=== PATIENT | male | born 1975 | race African-American/Black ===

== ENCOUNTER 2016-07-14 11:12 | Emergency (ER) | payer OTHER ==
[2016-07-14 11:18] VITALS: RESP 18
[2016-07-14] MEDS ORDERED: SODIUM CHLORIDE 0.9% 500 ML IV STA (11:29)
[2016-07-14] MEDS ORDERED: SODIUM CHLORIDE 0.9% 1,000 ML IV STA (11:29)
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
[2016-07-14 12:22] LABS: ALT 22 U/L (21-72); AST 26 U/L (17-59); Alkaline Phosphatase 55 U/L (38-126); Amylase 94 U/L (30-110); Anion Gap 6 mmol/L; Blood Urea Nitrogen 9 mg/dL (9-20); Calcium 9.4 mg/dL (8.4-10.2); Carbon Dioxide 27 mmol/L (22-30); Chloride 105 mmol/L (98-107); Glucose 90 mg/dL (74-99); Non-African American GFR(MDRD) >60 (>60 ml/min/1.73 sqM); Potassium 4.6 mmol/L (3.5-5.1); Sodium 138 mmol/L (137-145); Total Bilirubin 0.8 mg/dL (0.2-1.3); Total Protein 7.2 g/dL (6.3-8.2)
[2016-07-14 12:24] LABS: Basophils # (A) 0.1 k/uL (0-0.2); Basophils % (A) 1 %; CH 30.8; CHCM 32.5; Eosinophils # (A) 0.2 k/uL (0-0.7); Eosinophils % (A) 3 %; HCT 44.7 % (39.0-53.0); HDW 2.15; HGB 14.5 gm/dL (13.0-17.5); Luc # (Auto) 0.14; Luc % (Auto) 3; Lymphocytes # (A) 2.1 k/uL (1.0-4.8); Lymphocytes % (A) 38 %; MCHC 32.5 g/dL (31.0-37.0); MCV 95.4 fL (80.0-100.0); Mean Platelet Volume 7.4; Monocytes # (A) 0.4 k/uL (0-1.0); Monocytes % (A) 7 %; Neutrophils # (A) 2.6 k/uL (1.3-7.7); Neutrophils % (A) 48 %; RBC 4.68 m/uL (4.30-5.90); RDW 13.7 % (11.5-15.5); WBC 5.5 k/uL (3.8-10.6); WBC (Perox) 5.33
--- NOTE | 2016-07-14 12:24 | XR ---
EXAMINATION TYPE: XR abdomen 2V DATE OF EXAM: 07/14/2016 12:20 PM CLINICAL HISTORY: Umbilical pain for one day. TECHNIQUE: Supine and upright views of the abdomen are obtained. COMPARISON: Abdominal x-ray September 14, 2015 FINDINGS: Scattered gas is seen in non-distended small bowel loops. Gas and fecal material is seen in non-distended colon and rectum. There is no visceromegaly, pneumoperitoneum, or abnormal calcifi cation appreciated. The lung bases are clear. Sclerotic focus left proximal femur likely reflects be nign bone island. IMPRESSION: Overall nonobstructive bowel gas pattern. No significant change from prior.
[2016-07-14 12:51] LABS: Appearance,Urine Clear (Clear); Bilirubin,Urine Negative (Negative); Glucose,Urine (UA) Negative (Negative); Ketones,Urine Negative (Negative); Leukocyte Esterase,Urine Negative (Negative); Nitrite,Urine Negative (Negative); Protein,Urine Trace (Negative); Specific Gravity,Urine 1.021 (1.001-1.035); UA Billing (MACRO vs. MICRO) CHEM
[2016-07-14] MEDS ORDERED: IOHEXOL 350 MG/ML 25 ML BOTTLE (ORAL USE) PO PRN (13:07)
[2016-07-14] MEDS ORDERED: RX INFO: IV CONTRAST WAS GIVEN 1 EACH MISC MISCELLANE PRN (13:07)
[2016-07-14 13:35] VITALS: BP 161/106; PULSE 69; TEMP 97.3
== END 2016-07-14 13:35 | disposition home or self-care (01) ==
LOC: EC 11:12
DX: R10.9 Unspecified abdominal pain (principal); J45.909 Unspecified asthma, uncomplicated; F17.200 Nicotine dependence, unspecified, uncomplicated; Z79.899 Other long term (current) drug therapy
CPT/HCPCS: 36415; 74020; 80053; 81003; 82150; 83605; 83690; 85025; 87086; 96360; 99284

== ENCOUNTER 2016-11-14 08:36 | Emergency (ER) | payer OTHER ==
[2016-11-14 08:49] VITALS: BP 123/79; PULSE 60; RESP 18; TEMP 98.4
[2016-11-14] MEDS ORDERED: KETOROLAC 60 MG/2 ML VIAL IM STA (08:53)
[2016-11-14] MEDS ORDERED: ORPHENADRINE 30 MG/ML 2 ML VIAL IM STA (08:53)
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
--- NOTE | 2016-11-14 09:25 | XR ---
EXAMINATION TYPE: XR lumbar spine 2 or 3V , 3 VIEWS DATE OF EXAM ORDERED: 11/14/2016 HISTORY: Pain. COMPARISON: None. FINDINGS: There is a gentle dextroscoliosis present. Vertebral body height and alignment are maintained. There is no spondylolysis or spondylolisthesis. D isc spaces are maintained. There is mild hypertrophic spondylosis at T11-12 and T12-L1. The pedicles are intact. IMPRESSION: 1. NO ACUTE OSSEOUS LESION. 2. MILD DEGENERATIVE CHANGE.
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
== END 2016-11-14 09:35 | disposition home or self-care (01) ==
LOC: EC 08:36
DX: S16.1XXA Strain of muscle, fascia and tendon at neck level, initial encounter (principal); S39.012A Strain of muscle, fascia and tendon of lower back, initial encounter; F17.200 Nicotine dependence, unspecified, uncomplicated; Z18.11 Retained magnetic metal fragments; Z98.890 Other specified postprocedural states; Z79.899 Other long term (current) drug therapy
CPT/HCPCS: 99283; 96372 ×2; 72050; 72100; J2360; J1885

== ENCOUNTER 2017-02-14 17:29 | Emergency (ER) | payer OTHER ==
[2017-02-14 17:44] VITALS: RESP 18; TEMP 98.3
[2017-02-14] MEDS ORDERED: ONDANSETRON 4 MG/2 ML VIAL IVP STA (17:51)
[2017-02-14] MEDS ORDERED: SODIUM CHLORIDE 0.9% 500 ML IV STA (17:51)
[2017-02-14] MEDS ORDERED: FAMOTIDINE 20 MG/2 ML VIAL IV STA (17:52)
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
[2017-02-14 18:39] LABS: Basophils % (A) 1 %; CH 30.6; CHCM 33.2; Eosinophils # (A) 0.3 k/uL (0-0.7); Eosinophils % (A) 5 %; HCT 44.5 % (39.0-53.0); HDW 2.18; HGB 14.6 gm/dL (13.0-17.5); Luc # (Auto) 0.17; Luc % (Auto) 3; Lymphocytes # (A) 2.7 k/uL (1.0-4.8); Lymphocytes % (A) 47 %; MCH 30.3 pg (25.0-35.0); MCHC 32.8 g/dL (31.0-37.0); MCV 92.6 fL (80.0-100.0); Mean Platelet Volume 7.1; Monocytes # (A) 0.3 k/uL (0-1.0); Monocytes % (A) 5 %; Neutrophils # (A) 2.2 k/uL (1.3-7.7); Neutrophils % (A) 39 %; RBC 4.81 m/uL (4.30-5.90); RDW 13.6 % (11.5-15.5); WBC 5.7 k/uL (3.8-10.6); WBC (Perox) 5.25
[2017-02-14 18:54] LABS: ALT 25 U/L (21-72); AST 28 U/L (17-59); Alkaline Phosphatase 48 U/L (38-126); Amylase 106 U/L (30-110); Anion Gap 4 mmol/L; Blood Urea Nitrogen 15 mg/dL (9-20); Calcium 9.2 mg/dL (8.4-10.2); Carbon Dioxide 24 mmol/L (22-30); Chloride 107 mmol/L (98-107); Glucose 84 mg/dL (74-99); Non-African American GFR(MDRD) >60 (>60 ml/min/1.73 sqM); Potassium 4.1 mmol/L (3.5-5.1); Sodium 135 mmol/L (137-145); Total Bilirubin 0.5 mg/dL (0.2-1.3); Total Protein 5.9 g/dL (6.3-8.2)
[2017-02-14 18:59] VITALS: BP 135/79
[2017-02-14 19:02] LABS: Appearance,Urine Clear (Clear); Bacteria,Urine Rare /hpf; Bilirubin,Urine Negative (Negative); Glucose,Urine (UA) Negative (Negative); Ketones,Urine Negative (Negative); Leukocyte Esterase,Urine Moderate (Negative); Mucus,Urine Rare /hpf; Nitrite,Urine Negative (Negative); Particle Count 1854; Protein,Urine Trace (Negative); RBC,Urine 1 /hpf (0-5); Specific Gravity,Urine 1.024 (1.001-1.035); Sperm,Urine Rare /hpf; UA Billing (MACRO vs. MICRO) MICRO; WBC,Urine 29 /hpf (0-5)
--- NOTE | 2017-02-14 19:18 | XR ---
EXAMINATION TYPE: XR KUB DATE OF EXAM: 02/14/2017 COMPARISON: 07/14/2016 HISTORY: Abdominal pain TECHNIQUE: 2 views FINDINGS: There is no sign of intestinal obstruction or pneumoperitoneum. Fecal pattern is normal. Pam ng bases are clear. There are no pathologic calcifications over the kidneys. IMPRESSION: Nonacute abdomen. No change.
[2017-02-14 19:26] VITALS: PULSE 72
== END 2017-02-14 19:45 | disposition home or self-care (01) ==
LOC: MERGE 17:29 → EC 17:29
DX: N39.0 Urinary tract infection, site not specified (principal); R11.2 Nausea with vomiting, unspecified; R19.7 Diarrhea, unspecified; F17.200 Nicotine dependence, unspecified, uncomplicated; Z79.1 Long term (current) use of non-steroidal anti-inflammatories (NSAID); Z79.899 Other long term (current) drug therapy
CPT/HCPCS: 36415; 74000; 80053; 81001; 82150; 83690; 85025; 96361; 96374; 96375; 99284

== ENCOUNTER 2017-09-07 04:30 | Observation (INO) | payer OTHER ==
[2017-09-07 05:04] LABS: Basophils % (A) 0 %; Eosinophils # (A) 0.2 k/uL (0-0.7); Eosinophils % (A) 3 %; HCT 46.9 % (39.0-53.0); HGB 15.3 gm/dL (13.0-17.5); Lymphocytes # (A) 1.9 k/uL (1.0-4.8); Lymphocytes % (A) 31 %; MCH 29.8 pg (25.0-35.0); MCHC 32.7 g/dL (31.0-37.0); MCV 91.2 fL (80.0-100.0); Monocytes # (A) 0.4 k/uL (0-1.0); Monocytes % (A) 7 %; Neutrophils # (A) 3.4 k/uL (1.3-7.7); Neutrophils % (A) 56 %; Platelet Count 278 k/uL (150-450); RBC 5.14 m/uL (4.30-5.90); RDW 13.7 % (11.5-15.5); WBC 6.2 k/uL (3.8-10.6)
[2017-09-07 05:12] LABS: Albumin 4.3 g/dL (3.5-5.0); Anion Gap 11 mmol/L; Calcium 9.5 mg/dL (8.4-10.2); Carbon Dioxide 24 mmol/L (22-30); Chloride 105 mmol/L (98-107); Glucose 109 mg/dL (74-99); Lipase 59 U/L (23-300); Sodium 140 mmol/L (137-145); Total Bilirubin 0.5 mg/dL (0.2-1.3); Total Protein 6.9 g/dL (6.3-8.2)
[2017-09-07 05:13] LABS: ALT 26 U/L (21-72); AST 25 U/L (17-59); Alkaline Phosphatase 50 U/L (38-126); Blood Urea Nitrogen 15 mg/dL (9-20); Magnesium 2.1 mg/dL (1.6-2.3); Potassium 4.3 mmol/L (3.5-5.1)
[2017-09-07 05:18] LABS: D-Dimer 0.31 mg/L FEU (<0.60); INR 0.9 (<1.2); Partial Thromboplastin Time 28.7 sec (22.0-30.0); Prothrombin Time 9.4 sec (9.0-12.0)
[2017-09-07 05:24] LABS: Creatine Kinase 200 U/L (55-170)
--- NOTE | 2017-09-07 05:25 | XR ---
EXAMINATION TYPE: XR chest 2V DATE OF EXAM: 09/07/2017 COMPARISON: 09/29/2015 HISTORY: Chest tightness TECHNIQUE: Frontal and lateral views of the chest are obtained. FINDINGS: Heart and mediastinum are normal. Lungs are clear. Diaphragm is normal. Bony thorax is nor mal. There are chest leads. IMPRESSION: Normal chest. No change.
[2017-09-07 05:37] LABS: Creatine Kinase MB 0.5 ng/mL (0.0-2.4); Troponin I <0.012 ng/mL (0.000-0.034)
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
[2017-09-07] MEDS ORDERED: NITROGLYCERIN SL TABS 0.4 MG TAB SUBLINGUAL PRN (06:46)
[2017-09-07] MEDS ORDERED: MORPHINE SULFATE 2 MG/ML SYRINGE IV PRN (06:46)
[2017-09-07] MEDS ORDERED: ASPIRIN 81 MG PO STA (06:46)
[2017-09-07] MEDS ORDERED: HEPARIN SODIUM,PORCINE 5,000 UNIT/ML 1 ML VIAL IV PRN (06:46)
[2017-09-07] MEDS ORDERED: HEPARIN SODIUM,PORCINE 5,000 UNIT/ML 1 ML VIAL IV ONE (06:46)
[2017-09-07] MEDS ORDERED: HEPARIN SOD,PORK IN 0.45% NACL 25,000 UNIT in 0.45% NACL 1 500ML.BAG IV SCH (07:00)
[2017-09-07] MEDS: ATORVASTATIN 80 MG TAB PO SCH (09:13)
[2017-09-07] MEDS: METOPROLOL TARTRATE 25 MG TAB PO SCH ×3 (09:13→20:28)
[2017-09-07 11:33] VITALS: RESP 18
[2017-09-07 13:01] LABS: Creatine Kinase 156 U/L (55-170)
[2017-09-07 13:14] LABS: Creatine Kinase MB 0.3 ng/mL (0.0-2.4); Troponin I <0.012 ng/mL (0.000-0.034)
--- NOTE | 2017-09-07 14:17 | CONS ---
CONSULTATION Mr. Dooley came to the hospital with shortness of breath and chest discomfort. He said he took a deep breath and he could not catch his breath because his chest felt very tight. He also complained of having fever and cough. PAST HISTORY: He denies hypertension, diabetes, dyslipidemia. He does have a recent cough and expectoration with yellow sputum. MEDICATION: List at home included pain medications, inhalers, gabapentin, hydrocodone, nortriptyline. ALLERGIES: No known drug allergies. Past medical history of asthma. SOCIAL HISTORY: He is a current smoker. He uses marijuana. FAMILY HISTORY: His cousins have had myocardial infarction. PHYSICAL EXAMINATION: On examination, his blood pressure is 162/85 mmHg, pulse rate in the 60s and 70s. Head and neck examination is normal. He is afebrile. Heart sounds are S1, S2 normal. No murmurs, gallops, or rubs. Breath sounds are reduced bilaterally with bilateral rhonchorous breath sounds and crackles at the bases. Abdomen is soft. Extremities are warm. The 12-lead ECG shows normal sinus rhythm, normal cardiac intervals, normal ST segments. Two cardiac enzymes are normal. IMPRESSION: 1. Atypical chest discomfort. 2. Likely chronic obstructive pulmonary disease exacerbation. SUGGEST: Management of his pulmonary issues, 3 set of cardiac enzymes and serial ECGs and further management thereafter. MMODL / IJN: [id number] /
[2017-09-07] MEDS: IPRATROPIUM-ALBUTEROL 3 ML NEB INHALATION SCH ×2 (16:51→20:53)
[2017-09-07 17:14] LABS: Creatine Kinase 143 U/L (55-170)
[2017-09-07 17:27] LABS: Creatine Kinase MB 0.3 ng/mL (0.0-2.4); Troponin I <0.012 ng/mL (0.000-0.034)
[2017-09-07] MEDS: methylPREDNISolone SOD SUCCI 125 MG/2 ML VIAL IV SCH ×2 (18:28→20:28)
[2017-09-07] MEDS: DOXYCYCLINE 50 MG CAP PO SCH (18:28)
[2017-09-07 21:20] LABS: Glucose,Whole Blood 83 mg/dL (75-99)
[2017-09-07] MEDS: INSULIN ASPART 100 UNIT/ML 1 ML 10 ML VIAL SQ SCH (21:20)
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
[2017-09-08] MEDS: DOXYCYCLINE 50 MG CAP PO SCH ×2 (00:11→10:18)
[2017-09-08] MEDS: methylPREDNISolone SOD SUCCI 125 MG/2 ML VIAL IV SCH ×3 (00:11→11:47)
[2017-09-08 05:51] LABS: Glucose,Whole Blood 144 mg/dL (75-99)
[2017-09-08 06:34] LABS: Mean Platelet Volume 6.7; Platelet Count 237 k/uL (150-450)
[2017-09-08] MEDS: INSULIN ASPART 100 UNIT/ML 1 ML 10 ML VIAL SQ SCH ×2 (06:39→12:26)
[2017-09-08 06:51] LABS: Cholesterol 178 mg/dL (<200); HDL Cholesterol 79 mg/dL (40-60); LDL Cholesterol,Calculated 92 mg/dL (0-99); Triglycerides 33 mg/dL (<150)
[2017-09-08] MEDS: IPRATROPIUM-ALBUTEROL 3 ML NEB INHALATION SCH ×3 (08:30→16:15)
[2017-09-08] MEDS ORDERED: ASPIRIN 325 MG TAB PO SCH (09:00)
[2017-09-08] MEDS: METOPROLOL TARTRATE 25 MG TAB PO SCH (09:14)
[2017-09-08] MEDS: ATORVASTATIN 80 MG TAB PO SCH (09:14)
[2017-09-08 09:27] VITALS: TEMP 98.7
[2017-09-08 11:45] LABS: Glucose,Whole Blood 118 mg/dL (75-99)
[2017-09-08 12:28] VITALS: BP 112/68; PULSE 71
--- NOTE | 2017-09-08 12:51 | PN ---
PROGRESS NOTE Kevin Dooley is a 42-year-old male patient who presented with COPD exacerbation and atypical chest discomfort. His cardiac enzymes were reviewed since yesterday and are within normal limits x3. His 12-lead ECG did not show any ST-segment abnormalities. He has COPD exacerbation. Today he feels a lot better. He has no further chest discomfort. He is breathing a lot better; however, on examination his breath sounds are reduced bilaterally with bilateral rhonchi, although better than yesterday. He is afebrile at 98.7 degrees Fahrenheit, pulse rate in the 60s, blood pressure 131/65 mmHg. Head and neck examination is normal. No JVD. IMPRESSION: 1. Atypical chest discomfort. 2. Chronic obstructive pulmonary disease exacerbation. SUGGEST: The patient may go home from a cardiac standpoint once his pulmonary issues are resolved, and he will follow up with Dr. Miranda in about 4-6 weeks after resolution of his COPD exacerbation. MMODL / IJN: [id number] /
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
== END 2017-09-08 16:31 | disposition home or self-care (01) ==
LOC: EC 04:30 → 6SEL 06:49
PROVIDERS: ADMIT Hospitalist; ATTEND Hospitalist
DX: R07.89 Other chest pain (principal); J20.9 Acute bronchitis, unspecified; J44.0 Chronic obstructive pulmonary disease with (acute) lower respiratory infection; F12.90 Cannabis use, unspecified, uncomplicated; G89.4 Chronic pain syndrome; M54.9 Dorsalgia, unspecified; R11.10 Vomiting, unspecified; F17.200 Nicotine dependence, unspecified, uncomplicated; Z98.890 Other specified postprocedural states; Z79.1 Long term (current) use of non-steroidal anti-inflammatories (NSAID); Z79.899 Other long term (current) drug therapy; Z82.49 Family history of ischemic heart disease and other diseases of the circulatory system; Z87.39 Personal history of other diseases of the musculoskeletal system and connective tissue; Z87.820 Personal history of traumatic brain injury
CPT/HCPCS: 99291 ×2; 96365 ×2; 96376 ×4; 96366; 96375; 36415; 94640 ×4; 93005; 85379; 80061; 80053; 82550; 82553; 83690; 83735; 84484; 85025; 85049; 85610; 85730; 71046; G0378 ×2; J1644 ×2; J2930 ×2

== ENCOUNTER 2017-10-01 23:37 | Emergency (ER) | payer OTHER ==
[2017-10-02 00:35] VITALS: PULSE 63
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
[2017-10-02 03:21] LABS: Basophils % (A) 1 %; Eosinophils # (A) 0.3 k/uL (0-0.7); Eosinophils % (A) 5 %; HCT 48.4 % (39.0-53.0); HGB 15.5 gm/dL (13.0-17.5); Lymphocytes # (A) 2.6 k/uL (1.0-4.8); Lymphocytes % (A) 49 %; MCH 29.4 pg (25.0-35.0); MCV 91.8 fL (80.0-100.0); Monocytes # (A) 0.3 k/uL (0-1.0); Monocytes % (A) 5 %; Neutrophils # (A) 2.1 k/uL (1.3-7.7); Neutrophils % (A) 38 %; Platelet Count 213 k/uL (150-450); RBC 5.27 m/uL (4.30-5.90); RDW 13.9 % (11.5-15.5); WBC 5.4 k/uL (3.8-10.6)
--- NOTE | 2017-10-02 03:25 | XR ---
EXAMINATION TYPE: XR KUB DATE OF EXAM: 10/02/2017 COMPARISON: 02/14/2017 HISTORY: Abdominal pain TECHNIQUE: 2 upright views FINDINGS: There is no sign of intestinal obstruction or pneumoperitoneum. Fecal pattern is normal. Pam ng bases are clear. There are no pathologic calcifications. IMPRESSION: Nonacute abdomen. No change.
[2017-10-02 03:34] LABS: ALT 14 U/L (21-72); AST 30 U/L (17-59); Albumin 4.3 g/dL (3.5-5.0); Alkaline Phosphatase 60 U/L (38-126); Anion Gap 5 mmol/L; Blood Urea Nitrogen 11 mg/dL (9-20); Calcium 9.4 mg/dL (8.4-10.2); Carbon Dioxide 24 mmol/L (22-30); Chloride 106 mmol/L (98-107); Glucose 83 mg/dL (74-99); Lipase 49 U/L (23-300); Potassium 4.9 mmol/L (3.5-5.1); Sodium 135 mmol/L (137-145); Total Bilirubin 0.5 mg/dL (0.2-1.3); Total Protein 6.9 g/dL (6.3-8.2)
[2017-10-02 04:05] VITALS: BP 139/97; RESP 15; TEMP 97
== END 2017-10-02 04:03 | disposition home or self-care (01) ==
LOC: EC 23:37
DX: R10.84 Generalized abdominal pain (principal); F17.200 Nicotine dependence, unspecified, uncomplicated; Z79.1 Long term (current) use of non-steroidal anti-inflammatories (NSAID); Z79.899 Other long term (current) drug therapy
CPT/HCPCS: 36415; 74018; 80053; 83690; 85025; 99284

== ENCOUNTER 2017-10-26 10:11 | Emergency (ER) | payer OTHER ==
[2017-10-26 10:19] VITALS: TEMP 98.2
[2017-10-26] MEDS ORDERED: KETOROLAC 30 MG/ML 1 ML VIAL IVP STA (11:06)
[2017-10-26] MEDS ORDERED: PANTOPRAZOLE 40 MG/10 ML VIAL IVP STA (11:06)
[2017-10-26] MEDS ORDERED: SODIUM CHLORIDE 0.9% 1,000 ML IV STA ×2 (11:06)
[2017-10-26] MEDS ORDERED: ONDANSETRON 4 MG/2 ML VIAL IVP STA (11:06)
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
[2017-10-26 11:30] LABS: Basophils % (A) 1 %; Eosinophils # (A) 0.1 k/uL (0-0.7); Eosinophils % (A) 2 %; HGB 15.8 gm/dL (13.0-17.5); Lymphocytes # (A) 2.1 k/uL (1.0-4.8); Lymphocytes % (A) 41 %; MCH 29.2 pg (25.0-35.0); MCHC 31.6 g/dL (31.0-37.0); MCV 92.4 fL (80.0-100.0); Mean Platelet Volume 7.1; Monocytes # (A) 0.3 k/uL (0-1.0); Monocytes % (A) 7 %; Neutrophils # (A) 2.5 k/uL (1.3-7.7); Neutrophils % (A) 47 %; Platelet Count 248 k/uL (150-450); RDW 14.1 % (11.5-15.5); WBC 5.2 k/uL (3.8-10.6)
[2017-10-26 11:35] LABS: Appearance,Urine Clear (Clear); Bilirubin,Urine Negative (Negative); Blood,Urine Negative (Negative); Color,Urine Yellow; Glucose,Urine (UA) Negative (Negative); Ketones,Urine Negative (Negative); Leukocyte Esterase,Urine Negative (Negative); Nitrite,Urine Negative (Negative); Protein,Urine Negative (Negative); Specific Gravity,Urine 1.012 (1.001-1.035)
[2017-10-26 11:39] LABS: ALT 23 U/L (21-72); AST 24 U/L (17-59); Alkaline Phosphatase 45 U/L (38-126); Amylase 70 U/L (30-110); Anion Gap 6 mmol/L; Blood Urea Nitrogen 7 mg/dL (9-20); Calcium 9.4 mg/dL (8.4-10.2); Carbon Dioxide 27 mmol/L (22-30); Chloride 104 mmol/L (98-107); Glucose 81 mg/dL (74-99); Lipase 72 U/L (23-300); Potassium 4.5 mmol/L (3.5-5.1); Sodium 137 mmol/L (137-145); Total Bilirubin 0.3 mg/dL (0.2-1.3); Total Protein 6.3 g/dL (6.3-8.2)
--- NOTE | 2017-10-26 11:41 | XR ---
Abdomen HISTORY: Right-sided flank pain Frontal view of the abdomen on 2 images correlated to prior exam 10/02/2017 Lung bases are clear. No pneumoperitoneum or bowel obstruction evident. Calcification in left hemipel vis is stable. Bone mineralization is normal. IMPRESSION: No acute abnormality is evident.
[2017-10-26 11:44] LABS: Partial Thromboplastin Time 28.9 sec (22.0-30.0); Prothrombin Time 9.9 sec (9.0-12.0)
--- NOTE | 2017-10-26 12:28 | US ---
EXAMINATION TYPE: US gallbladder DATE OF EXAM: 10/26/2017 COMPARISON: NONE CLINICAL HISTORY: Pain. Right upper quadrant and flank pain, nausea EXAM MEASUREMENTS: Liver Length: 14.5 cm Gallbladder Wall: 0.2 cm CBD: 0.4 cm Right Kidney: 9.4 x 3.5 x 4.3 cm Pancreas: wnl Liver: wnl Gallbladder: patient 1 hour post prandial, gallbladder is contracted, limited visualization Evidence for sonographic John's sign: no CBD: wnl Right Kidney: inferior pole somewhat obscured by overlying bowel gas There is no ascites. IMPRESSION: Exam somewhat limited. No significant abnormalities evident.
[2017-10-26 13:38] VITALS: BP 131/85; PULSE 70; RESP 16
== END 2017-10-26 13:30 | disposition home or self-care (01) ==
LOC: EC 10:11
DX: K80.50 Calculus of bile duct without cholangitis or cholecystitis without obstruction (principal); M54.9 Dorsalgia, unspecified; G89.29 Other chronic pain; F17.200 Nicotine dependence, unspecified, uncomplicated; Z79.1 Long term (current) use of non-steroidal anti-inflammatories (NSAID); Z79.899 Other long term (current) drug therapy
CPT/HCPCS: 36415; 80053; 82150; 83690; 85025; 85610; 85730; 81003; 74018; 76705; 99285; 96374; 96375 ×2; 96361 ×2; J2405; J1885; C9113

== ENCOUNTER → 2017-11-12 | Outpatient (CLI) | payer OTHER ==
--- NOTE | 2017-11-12 11:06 | NM ---
EXAMINATION TYPE: NM hepatobiliary w EF DATE OF EXAM: 11/12/2017 COMPARISON: Ultrasound gallbladder 10/26/2017 HISTORY: Abdomen pelvis pain, right upper quadrant pain TECHNIQUE: After the intravenous administration of 5.3 mCi Tc 99m Mebrofenin hepatobiliary scintigrap hy is performed. Immediate images post injection. FINDINGS: There is satisfactory initial accumulation of tracer by the liver. The gallbladder is visualized wit hin 6 minutes. The small bowel activity is noted within 10 minutes. At one hour 8 ounces of oral en sure plus is given to mimic CCK and gallbladder ejection fraction is calculated at 74 %, in the julian l range. Therefore there is no scintigraphic evidence of cystic or common bile duct obstruction to s uggest acute cholecystitis or gallbladder dyskinesia. IMPRESSION: Exam is within normal limits.
== END | disposition home or self-care (01) ==
LOC: RADNMMAIN 06:55
PROVIDERS: ATTEND Internal Medicine
DX: R10.11 Right upper quadrant pain (principal)
CPT/HCPCS: 78226; A9537

== ENCOUNTER 2017-12-04 02:55 | Emergency (ER) | payer OTHER ==
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
[2017-12-04] MEDS ORDERED: SODIUM CHLORIDE 0.9% 1,000 ML IV ONE (03:31)
[2017-12-04] MEDS ORDERED: DICYCLOMINE 10 MG/ML 2 ML AMP IM STA (03:31)
[2017-12-04 03:44] LABS: Basophils # (A) 0.1 k/uL (0-0.2); Basophils % (A) 1 %; Eosinophils # (A) 0.3 k/uL (0-0.7); Eosinophils % (A) 6 %; HGB 14.1 gm/dL (13.0-17.5); Lymphocytes # (A) 2.4 k/uL (1.0-4.8); Lymphocytes % (A) 45 %; MCH 29.8 pg (25.0-35.0); MCHC 32.1 g/dL (31.0-37.0); MCV 92.7 fL (80.0-100.0); Mean Platelet Volume 7.5; Monocytes # (A) 0.4 k/uL (0-1.0); Monocytes % (A) 7 %; Neutrophils % (A) 37 %; Platelet Count 208 k/uL (150-450); RBC 4.74 m/uL (4.30-5.90); RDW 14.3 % (11.5-15.5); WBC 5.3 k/uL (3.8-10.6)
[2017-12-04 03:50] VITALS: RESP 16
[2017-12-04 03:53] LABS: ALT 19 U/L (21-72); AST 21 U/L (17-59); Albumin 3.2 g/dL (3.5-5.0); Alkaline Phosphatase 43 U/L (38-126); Anion Gap 6 mmol/L; Blood Urea Nitrogen 16 mg/dL (9-20); Calcium 9.1 mg/dL (8.4-10.2); Carbon Dioxide 26 mmol/L (22-30); Chloride 107 mmol/L (98-107); Glucose 120 mg/dL (74-99); Lipase 61 U/L (23-300); Potassium 4.3 mmol/L (3.5-5.1); Sodium 139 mmol/L (137-145); Total Bilirubin 0.2 mg/dL (0.2-1.3); Total Protein 5.6 g/dL (6.3-8.2)
[2017-12-04 04:05] LABS: Appearance,Urine Clear (Clear); Bilirubin,Urine Negative (Negative); Blood,Urine Negative (Negative); Color,Urine Yellow; Glucose,Urine (UA) Negative (Negative); Ketones,Urine Negative (Negative); Leukocyte Esterase,Urine Negative (Negative); Nitrite,Urine Negative (Negative); Protein,Urine Negative (Negative); Specific Gravity,Urine 1.023 (1.001-1.035); Urobilinogen,Urine <2.0 mg/dL (<2.0)
[2017-12-04 04:53] VITALS: BP 108/72; PULSE 64; TEMP 97.6
== END 2017-12-04 04:57 | disposition home or self-care (01) ==
LOC: EC 02:55
DX: R10.9 Unspecified abdominal pain (principal); R11.10 Vomiting, unspecified; F17.200 Nicotine dependence, unspecified, uncomplicated; Z79.1 Long term (current) use of non-steroidal anti-inflammatories (NSAID); Z79.899 Other long term (current) drug therapy
CPT/HCPCS: 36415; 80053; 83690; 85025; 81003; 99284; 96360; 96372; J0500

== ENCOUNTER 2017-12-29 11:57 | Emergency (ER) | payer OTHER ==
[2017-12-29 12:19] VITALS: BP 116/81; PULSE 89; RESP 18; TEMP 98.7
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
--- NOTE | 2017-12-29 13:09 | XR ---
EXAMINATION TYPE: XR foot limited bilateral , 4 VIEWS DATE OF EXAM ORDERED: 12/29/2017 HISTORY: Pain. COMPARISON: None. FINDINGS: No fracture or dislocation is seen. There is a tiny plantar calcaneal spur on the right. IMPRESSION: 1. NO ACUTE OSSEOUS LESION. 2. TINY, RIGHT-SIDED PLANTAR CALCANEAL SPUR.
[2017-12-29] MEDS ORDERED: traMADol 50 MG STARTER PACK 3 TAB BTL PO STA (13:18)
== END 2017-12-29 13:41 | disposition home or self-care (01) ==
LOC: EC 11:57
DX: S76.011A Strain of muscle, fascia and tendon of right hip, initial encounter (principal); G89.29 Other chronic pain; M79.672 Pain in left foot; M77.31 Calcaneal spur, right foot; M25.511 Pain in right shoulder; M25.512 Pain in left shoulder; R10.9 Unspecified abdominal pain; G62.9 Polyneuropathy, unspecified; F17.200 Nicotine dependence, unspecified, uncomplicated; Z79.1 Long term (current) use of non-steroidal anti-inflammatories (NSAID); Z79.899 Other long term (current) drug therapy; X58.XXXA Exposure to other specified factors, initial encounter
CPT/HCPCS: 99283

== ENCOUNTER → 2018-01-02 | Outpatient (CLI) | payer OTHER ==
--- NOTE | 2018-01-02 14:01 | US ---
EXAMINATION TYPE: US abdomen comp/pelvis limited DATE OF EXAM: 01/02/2018 COMPARISON: CT spine August 05, 2015 CLINICAL HISTORY: R10.9 ABD AND PELVIC PAIN. Intermittent abdomen pain and nausea x couple weeks EXAM MEASUREMENTS: Liver Length: 14.9 cm Gallbladder Wall: 0.2 cm CBD: 0.5 cm Spleen: 9.0 cm Right Kidney: 9.8 x 4.2 x 4.6 cm Left Kidney: 9.3 x 5.5 x 4.4 cm Pancreas: wnl Liver: heterogeneous Gallbladder: wnl CBD: wnl Spleen: visualized portions wnl, limited by overlying bowel gas Right Kidney: wnl Left Kidney: wnl Upper IVC: wnl Abd Aorta: visualized portions wnl, distal portion obscured by overlying midline bowel gas Bladder: wnl Bilateral Jets Seen yes Slightly suboptimal evaluation of spleen and distal abdominal aorta on images saved. No suspicious ac yunier findings are evident. Bladder is felt within normal limits towards end of study. IMPRESSION: As above
== END ==
LOC: RADUSWWP 09:05
PROVIDERS: ATTEND Internal Medicine
DX: R10.12 Left upper quadrant pain (principal)
CPT/HCPCS: 76700; 76857

== ENCOUNTER 2018-04-03 20:38 | Emergency (ER) | payer OTHER ==
[2018-04-03] MEDS ORDERED: HYDROcodone/APAP 5-325MG 1 EACH TAB PO STA (22:13)
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
[2018-04-03 22:48] LABS: Basophils % (A) 1 %; Eosinophils # (A) 0.4 k/uL (0-0.7); Eosinophils % (A) 6 %; HCT 46.3 % (39.0-53.0); HGB 14.4 gm/dL (13.0-17.5); Lymphocytes % (A) 47 %; MCH 29.4 pg (25.0-35.0); MCHC 31.1 g/dL (31.0-37.0); MCV 94.6 fL (80.0-100.0); Mean Platelet Volume 6.4; Monocytes # (A) 0.4 k/uL (0-1.0); Monocytes % (A) 7 %; Neutrophils # (A) 2.4 k/uL (1.3-7.7); Neutrophils % (A) 37 %; Platelet Count 230 k/uL (150-450); RBC 4.89 m/uL (4.30-5.90); RDW 14.2 % (11.5-15.5); WBC 6.4 k/uL (3.8-10.6)
[2018-04-03 22:57] LABS: Anion Gap 4 mmol/L; Blood Urea Nitrogen 10 mg/dL (9-20); Calcium 9.1 mg/dL (8.4-10.2); Carbon Dioxide 25 mmol/L (22-30); Chloride 106 mmol/L (98-107); Glucose 97 mg/dL (74-99); Potassium 4.5 mmol/L (3.5-5.1); Sodium 135 mmol/L (137-145)
[2018-04-03 23:10] LABS: Appearance,Urine Clear (Clear); Bilirubin,Urine Negative (Negative); Blood,Urine Negative (Negative); Color,Urine Yellow; Glucose,Urine (UA) Negative (Negative); Ketones,Urine Negative (Negative); Leukocyte Esterase,Urine Negative (Negative); Nitrite,Urine Negative (Negative); Protein,Urine Negative (Negative); Urobilinogen,Urine <2.0 mg/dL (<2.0)
[2018-04-04 00:15] VITALS: PULSE 57
[2018-04-04 00:59] VITALS: BP 123/82; RESP 14; TEMP 97.6
== END 2018-04-04 00:52 | disposition home or self-care (01) ==
LOC: EC 20:38
DX: R10.9 Unspecified abdominal pain (principal); M54.9 Dorsalgia, unspecified; K31.89 Other diseases of stomach and duodenum; F17.200 Nicotine dependence, unspecified, uncomplicated
CPT/HCPCS: 36415; 80048; 81003; 85025; 99284

== ENCOUNTER 2018-05-17 14:07 | Observation (INO) | payer OTHER ==
[2018-05-17] MEDS ORDERED: NITROGLYCERIN SL TABS 0.4 MG TAB SUBLINGUAL STA ×3 (14:24)
[2018-05-17] MEDS ORDERED: ASPIRIN 81 MG PO STA (14:24)
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
[2018-05-17] MEDS ORDERED: NITROGLYCERIN OINT 1 INCH/GM PACKET TOPICAL STA (14:51)
[2018-05-17 15:06] LABS: Basophils % (A) 1 %; Eosinophils # (A) 0.2 k/uL (0-0.7); Eosinophils % (A) 3 %; HCT 48.9 % (39.0-53.0); HGB 15.4 gm/dL (13.0-17.5); Lymphocytes # (A) 2.1 k/uL (1.0-4.8); Lymphocytes % (A) 35 %; MCH 30.2 pg (25.0-35.0); MCHC 31.6 g/dL (31.0-37.0); MCV 95.4 fL (80.0-100.0); Mean Platelet Volume 6.9; Monocytes # (A) 0.3 k/uL (0-1.0); Monocytes % (A) 6 %; Neutrophils # (A) 3.2 k/uL (1.3-7.7); Neutrophils % (A) 53 %; Platelet Count 224 k/uL (150-450); RBC 5.12 m/uL (4.30-5.90)
[2018-05-17 15:14] LABS: ALT 18 U/L (21-72); AST 30 U/L (17-59); Albumin 3.6 g/dL (3.5-5.0); Alkaline Phosphatase 50 U/L (38-126); Anion Gap 5 mmol/L; Blood Urea Nitrogen 9 mg/dL (9-20); Calcium 9.3 mg/dL (8.4-10.2); Carbon Dioxide 26 mmol/L (22-30); Chloride 106 mmol/L (98-107); Creatine Kinase 121 U/L (55-170); Glucose 81 mg/dL (74-99); Magnesium 2.1 mg/dL (1.6-2.3); Sodium 137 mmol/L (137-145); Total Bilirubin 0.7 mg/dL (0.2-1.3); Total Protein 6.2 g/dL (6.3-8.2)
[2018-05-17 15:16] LABS: Potassium 5.3 mmol/L (3.5-5.1)
--- NOTE | 2018-05-17 15:20 | XR ---
EXAMINATION TYPE: XR chest 2V DATE OF EXAM: 05/17/2018 COMPARISON: Prior chest x-ray 09/07/2017 HISTORY: Chest pain TECHNIQUE: Frontal and lateral views of the chest are obtained. FINDINGS: There is no focal air space opacity, pleural effusion, or pneumothorax seen. The cardiac silhouette size is within normal limits. The osseous structures are intact. There are cardiac leads . IMPRESSION: No acute cardiopulmonary process.
[2018-05-17 15:33] LABS: INR 0.9 (<1.2); Prothrombin Time 9.6 sec (9.0-12.0)
[2018-05-17 15:34] LABS: Partial Thromboplastin Time 28.9 sec (22.0-30.0)
[2018-05-17 15:37] LABS: Creatine Kinase MB 0.3 ng/mL (0.0-2.4); Troponin I <0.012 ng/mL (0.000-0.034)
[2018-05-17] MEDS ORDERED: NITROGLYCERIN SL TABS 0.4 MG TAB SUBLINGUAL PRN (15:41)
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
--- NOTE | 2018-05-17 18:44 | ECHOF ---
Referral Reason:Chest pain MEASUREMENTS -------- HEIGHT: 177.8 cm WEIGHT: 77.1 kg BP: IVSd: 1.3 cm (0.6 - 1.1) LVIDd: 4.3 cm (3.9 - 5.3) LVPWd: 1.5 cm (0.6 - 1.1) IVSs: 1.4 cm LVIDs: 3.4 cm LVPWs: 1.8 cm Ao Diam: 3.2 cm (2.0 - 3.7) AV Cusp: 2.5 cm (1.5 - 2.6) LA Diam: 2.5 cm (2.7 - 3.8) MV EXCURSION: 20.130 mm (> 18.000) MV EF SLOPE: 269 mm/s (70 - 150) EPSS: 1.9 cm MV E Singh: 0.53 m/s MV DecT: 199 ms MV A Singh: 0.39 m/s MV E/A Ratio: 1.37 RAP: 5.00 mmHg RVSP: 22.55 mmHg FINDINGS -------- Sinus rhythm. This was a technically good study. The left ventricular size is normal. There is mild concentric left ventricular hypertrophy. Overa ll left ventricular systolic function is mild-moderately impaired with, an EF between 40 - 45 %. The right ventricle is normal in size and function. The left atrium is normal in size. The right atrium is normal in size. The aortic valve is trileaflet, and appears structurally normal. No aortic stenosis or regurgitation. The mitral valve leaflets are mildly thickened. Mild mitral annular calcification present. There is trace mitral regurgitation. Trace tricuspid regurgitation present. The right ventricular systolic pressure, as measured by Dopp ler, is 22.55mmHg. Pulmonic valve appears structurally normal. The aortic root size is normal. Normal inferior vena cava with normal inspiratory collapse consistent with estimated right atrial pre ssure of 5 mmHg. The pericardium is normal. CONCLUSIONS -------- 1. Sinus rhythm. 2. This was a technically good study. 3. The left ventricular size is normal. 4. There is mild concentric left ventricular hypertrophy. 5. Overall left ventricular systolic function is mild-moderately impaired with, an EF between 40 - 45 %. 6. The right ventricle is normal in size and function. 7. The left atrium is normal in size. 8. The right atrium is normal in size. 9. The aortic valve is trileaflet, and appears structurally normal. No aortic stenosis or regurgitati on. 10. The mitral valve leaflets are mildly thickened. 11. Mild mitral annular calcification present. 12. There is trace mitral regurgitation. 13. Trace tricuspid regurgitation present. 14. The right ventricular systolic pressure, as measured by Doppler, is 22.55mmHg. 15. Pulmonic valve appears structurally normal. 16. The aortic root size is normal. 17. Normal inferior vena cava with normal inspiratory collapse consistent with estimated right atrial pressure of 5 mmHg. 18. The pericardium is normal. SENIOR [employer] CONSULTANT: Myah Blackburn RDCS
[2018-05-17] MEDS: PANTOPRAZOLE 40 MG/10 ML VIAL IVP SCH (18:45)
[2018-05-17] MEDS: NITROGLYCERIN OINT 1 INCH/GM PACKET TOPICAL SCH ×2 (20:06→22:57)
[2018-05-18 01:12] LABS: Cholesterol 190 mg/dL (<200); HDL Cholesterol 67 mg/dL (40-60); LDL Cholesterol,Calculated 110 mg/dL (0-99); Triglycerides 67 mg/dL (<150)
[2018-05-18] MEDS: NITROGLYCERIN OINT 1 INCH/GM PACKET TOPICAL SCH ×2 (03:56→11:53)
--- NOTE | 2018-05-18 08:33 | US ---
EXAMINATION TYPE: US gallbladder DATE OF EXAM: 05/18/2018 COMPARISON: Ultrasound abdomen January 02 2018 CLINICAL HISTORY: elevated liver enzymes. chest pain EXAM MEASUREMENTS: Liver Length: 13.7 cm Gallbladder Wall: 0.2 cm CBD: 0.4 cm Right Kidney: 9.4 x 3.9 x 5.1 cm Pancreas: visualized portions wnl Liver: wnl Gallbladder: No stones seen Evidence for sonographic John's sign: No CBD: wnl Right Kidney: No hydronephrosis or masses seen Visualized portion of pancreas is within normal limits. IVC is seen near hepatic dome. Visualized por tion of liver is felt within normal limits on images saved. Limited images right kidney show no gross hydronephrosis. Common bile duct is not dilated. Gallbladder towards end of study shows no shadowing mobile gallstones or suspicious wall thickening. IMPRESSION: Unremarkable study.
[2018-05-18] MEDS ORDERED: ASPIRIN 325 MG TAB PO SCH (09:00)
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
[2018-05-18] MEDS: PANTOPRAZOLE 40 MG/10 ML VIAL IVP SCH (11:51)
[2018-05-18 12:12] VITALS: BP 122/80; PULSE 60; RESP 16; TEMP 98.6
--- NOTE | 2018-05-18 16:30 | P.DS ---
Providers Date of admission: 05/17/18 15:41 Attending physician: Saloni Avitia Consults: 05/17/18 15:41 Consult Physician Urgent Consulting Provider: Rayray Keene Consult Reason/Comments: cp Do you want consulting provider notified?: Yes Primary care physician: Ary Poole [facility] Course: Patient was admitted for chest pain rule out acute, syndromes patient was evaluated by cardiology patient has atypical chest pain presently resolved patient is being discharged today. Patient echocardiac exam showed mildly depressed ejection fraction of around 45% because of which cardiology is recommending a low-dose of beta viviana and lisinopril patient will be discharged on this and patient will follow with cardiology as an outpatient. Patient will follow Dr. Mcallister as an outpatient. PHYSICAL EXAMINATION: GENERAL: The patient is alert and oriented x3, not in any acute distress. Well developed, well nourished. HEENT: Pupils are round and equally reacting to light. EOMI. No scleral icterus. No conjunctival pallor. Normocephalic, atraumatic. No pharyngeal erythema. No thyromegaly. CARDIOVASCULAR: S1 and S2 present. No murmurs, rubs, or gallops. PULMONARY: Chest is clear to auscultation, no wheezing or crackles. ABDOMEN: Soft, nontender, nondistended, normoactive bowel sounds. No palpable organomegaly. MUSCULOSKELETAL: No joint swelling or deformity. EXTREMITIES: No cyanosis, clubbing, or pedal edema. NEUROLOGICAL: Gross neurological examination did not reveal any focal deficits. SKIN: No rashes. For other chronic medical problems has physician course please refer to my HPI from yesterday Plan - Discharge Summary New Discharge Prescriptions: New Carvedilol [Coreg] 1.563 mg PO BID-W/MEALS #60 dose Lisinopril [Zestril] 2.5 mg PO DAILY #30 tab Omeprazole [PriLOSEC] 40 mg PO AC-BRKFST #14 capsule. Discharge Medication List Carvedilol [Coreg] 1.563 mg PO BID-W/MEALS #60 dose 05/18/18 [Rx] Lisinopril [Zestril] 2.5 mg PO DAILY #30 tab 05/18/18 [Rx] Omeprazole [PriLOSEC] 40 mg PO AC-BRKFST #14 capsule. 05/18/18 [Rx] Follow up Appointment(s)/Referral(s): Christine Rico MD [STAFF PHYSICIAN] - 05/31/18 4:15 pm (Patient had pre scheduled appointment with Dr. Miranda on 05/31/2018 @ 1615.) Iona Mcallister MD [Primary Care Provider] - 3 Days Patient Instructions/Handouts: Chest Pain (DC) Discharge Disposition: HOME SELF-CARE
[2018-05-18] MEDS ORDERED: CARVEDILOL 1.563 MG TAB PO SCH (17:30)
[2018-05-19] MEDS ORDERED: LISINOPRIL 2.5 MG TAB PO SCH (09:00)
== END 2018-05-18 14:35 | disposition home or self-care (01) ==
LOC: EC 14:07 → 1SOBS 15:41
PROVIDERS: ADMIT Internal Medicine; ATTEND Internal Medicine
DX: R07.89 Other chest pain (principal); J45.909 Unspecified asthma, uncomplicated; M54.9 Dorsalgia, unspecified; G89.29 Other chronic pain; E87.5 Hyperkalemia; E11.9 Type 2 diabetes mellitus without complications; E78.5 Hyperlipidemia, unspecified; I42.9 Cardiomyopathy, unspecified; I10 Essential (primary) hypertension; F17.210 Nicotine dependence, cigarettes, uncomplicated; Z71.6 Tobacco abuse counseling; Z82.49 Family history of ischemic heart disease and other diseases of the circulatory system
CPT/HCPCS: 96374; 96376; 99285; 36415; 93005; 93306; 80061; 80053; 82550; 82553; 83735; 84132; 84484 ×2; 85025; 85610; 85730; 71046; 76705; G0378 ×2; C9113 ×2

== ENCOUNTER 2018-06-03 17:56 | Emergency (ER) | payer OTHER ==
[2018-06-03] MEDS ORDERED: SODIUM CHLORIDE 0.9% 1,000 ML IV STA ×2 (18:24)
[2018-06-03] MEDS ORDERED: ONDANSETRON 4 MG/2 ML VIAL IVP STA (18:24)
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
[2018-06-03 18:46] LABS: Basophils % (A) 0 %; Eosinophils # (A) 0.3 k/uL (0-0.7); Eosinophils % (A) 4 %; HCT 48.8 % (39.0-53.0); HGB 15.7 gm/dL (13.0-17.5); Lymphocytes # (A) 1.6 k/uL (1.0-4.8); Lymphocytes % (A) 21 %; MCH 30.3 pg (25.0-35.0); MCHC 32.1 g/dL (31.0-37.0); MCV 94.5 fL (80.0-100.0); Mean Platelet Volume 6.7; Monocytes # (A) 0.4 k/uL (0-1.0); Monocytes % (A) 5 %; Neutrophils % (A) 67 %; Platelet Count 243 k/uL (150-450); RBC 5.17 m/uL (4.30-5.90); WBC 7.5 k/uL (3.8-10.6)
[2018-06-03 18:57] LABS: ALT 27 U/L (21-72); AST 31 U/L (17-59); Albumin 4.4 g/dL (3.5-5.0); Alkaline Phosphatase 51 U/L (38-126); Anion Gap 8 mmol/L; Blood Urea Nitrogen 10 mg/dL (9-20); Calcium 9.3 mg/dL (8.4-10.2); Carbon Dioxide 25 mmol/L (22-30); Chloride 104 mmol/L (98-107); Glucose 80 mg/dL (74-99); Magnesium 1.9 mg/dL (1.6-2.3); Phosphorus 4.3 mg/dL (2.5-4.5); Sodium 137 mmol/L (137-145); Total Bilirubin 0.6 mg/dL (0.2-1.3); Total Protein 7.3 g/dL (6.3-8.2)
[2018-06-03 18:58] LABS: Potassium 4.1 mmol/L (3.5-5.1)
--- NOTE | 2018-06-03 20:07 | CT ---
EXAMINATION TYPE: CT abdomen pelvis w con DATE OF EXAM: 06/03/2018 COMPARISON: None HISTORY: Abdominal pain and vomiting CT DLP: 650.6 mGycm Automated exposure control for dose reduction was used. TECHNIQUE: Helical acquisition of images was performed from the lung bases through the pelvis. CONTRAST: Performed without Oral Contrast and with IV Contrast, patient injected with 100 mL of Isovue 300. FINDINGS: Lung bases are clear. There is no pleural effusion. Heart size is normal. There is no pericardial eff usion. Liver spleen pancreas gallbladder appear normal. Bile ducts are not dilated. Stomach appears normal. There is no adrenal mass. Kidneys show satisfactory contrast opacification. There is no hydronephrosi s. There is no retroperitoneal adenopathy. Bladder distends smoothly. There is no free fluid in the p elier. There is no inguinal hernia. Appendix appears to be posterior and appears normal. There is no mesenteric edema. There is no sign of a bowel obstruction. There is no sign of free air o r ascites. The lumbar spine is intact. Bony pelvis is intact. IMPRESSION: NORMAL CT SCAN OF THE ABDOMEN AND PELVIS.
[2018-06-03 20:59] VITALS: BP 131/81; PULSE 73; RESP 18; TEMP 98.2
== END 2018-06-03 21:01 | disposition home or self-care (01) ==
LOC: EC 17:56
DX: R11.2 Nausea with vomiting, unspecified (principal); R10.84 Generalized abdominal pain; R63.0 Anorexia; R19.7 Diarrhea, unspecified; F17.200 Nicotine dependence, unspecified, uncomplicated
CPT/HCPCS: 36415; 93005; 80053; 83690; 83735; 84100; 84484; 85025; 74177; 99285; 96374; 96361 ×2; J2405; Q9967

== ENCOUNTER → 2018-06-18 | Outpatient (CLI) | payer OTHER ==
--- NOTE | 2018-06-18 16:37 | CT ---
EXAMINATION TYPE: CT brain wo con DATE OF EXAM: 06/18/2018 COMPARISON: 11/17/2014 HISTORY: 42-year-old male Headache x 4 days. TECHNIQUE: Examination was done in axial plane without intravenous contrast. Coronal and sagittal r econstructions performed. CT DLP: 1135 mGycm Automated exposure control for dose reduction was used. FINDINGS: There is no evidence of acute intracranial hemorrhage, acute ischemic changes, mass, mass-effect, or extra-axial fluid collection. There is no effacement of cerebral sulci or basal subarachnoid cister ns. There is no hydrocephalus. There is no midline shift. Freed-white matter distinction is preserv ed. There is chronic midline prefrontal soft tissue swelling. Scattered metallic debris within the calvarial vault. Some associated encephalomalacia suggested at t he left temporoparietal junction were some metallic debris is also present. Paranasal sinuses and mastoid air cells are well pneumatized. Orbits and globes are intact. IMPRESSION: Stable scattered punctate metallic debris strewn throughout the calvarial vault. No acute intracrania l abnormality seen. 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
== END | disposition home or self-care (01) ==
LOC: RADCTMAIN 15:54
PROVIDERS: ATTEND Internal Medicine
DX: R51 Headache (principal)
CPT/HCPCS: 70450

== ENCOUNTER 2019-04-22 08:13 | Emergency (ER) | payer OTHER ==
[2019-04-22 08:21] VITALS: RESP 18
[2019-04-22] MEDS ORDERED: ONDANSETRON 4 MG/2 ML VIAL IVP STA (08:37)
[2019-04-22] MEDS ORDERED: ACETAMINOPHEN TAB 500 MG TAB PO STA (08:37)
[2019-04-22] MEDS ORDERED: SODIUM CHLORIDE 0.9% 1,000 ML IV ONE (08:37)
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
[2019-04-22 09:16] LABS: ALT 19 U/L (4-49); AST 28 U/L (17-59); African American GFR (CKD) >90 (>60 ml/min/1.73 sqM); Albumin 3.8 g/dL (3.5-5.0); Alkaline Phosphatase 59 U/L (38-126); Anion Gap 8 mmol/L; Blood Urea Nitrogen 6 mg/dL (9-20); Calcium 9.2 mg/dL (8.4-10.2); Carbon Dioxide 24 mmol/L (22-30); Chloride 105 mmol/L (98-107); Glucose 108 mg/dL (74-99); HCT 52.8 % (39.0-53.0); HGB 16.6 gm/dL (13.0-17.5); MCH 29.5 pg (25.0-35.0); MCHC 31.4 g/dL (31.0-37.0); MCV 93.9 fL (80.0-100.0); Mean Platelet Volume 7.9; Non-African American GFR(CKD) 83 (>60 ml/min/1.73 sqM); Platelet Count 174 k/uL (150-450); Potassium 3.9 mmol/L (3.5-5.1); RBC 5.62 m/uL (4.30-5.90); RDW 13.7 % (11.5-15.5); Sodium 137 mmol/L (137-145); Total Bilirubin 0.4 mg/dL (0.2-1.3); Total Protein 6.6 g/dL (6.3-8.2); WBC 5.1 k/uL (3.8-10.6)
[2019-04-22] MEDS ORDERED: OSELTAMIVIR 75 MG CAP PO STA (09:31)
--- NOTE | 2019-04-22 09:47 | XR ---
EXAMINATION TYPE: XR chest 2V DATE OF EXAM: 04/22/2019 COMPARISON: Prior chest x-ray 05/17/2018 HISTORY: Difficulty breathing TECHNIQUE: Frontal and lateral views of the chest are obtained. FINDINGS: There is no focal air space opacity, pleural effusion, or pneumothorax seen. The cardiac silhouette size is within normal limits. The osseous structures are intact. There are prominent tayo g volumes. There are overlying cardiac leads. IMPRESSION: No acute cardiopulmonary process.
[2019-04-22 09:51] LABS: Band Neutrophils % 1 %; Lymphocytes # (M) 0.41 k/uL (1.0-4.8); Monocytes # (M) 0.97 k/uL (0-1.0); Neutrophils % (M) 72 %; Nucleated Red Blood Cells 0 /100 WBC (0-0); Total Cells Counted 100
[2019-04-22 10:34] VITALS: BP 127/84; PULSE 65; TEMP 98.4
== END 2019-04-22 10:36 | disposition home or self-care (01) ==
LOC: EC 08:13
DX: J11.1 Influenza due to unidentified influenza virus with other respiratory manifestations (principal); F17.200 Nicotine dependence, unspecified, uncomplicated
CPT/HCPCS: 36415; 93005; 80053; 85025; 87502; 71046; 96374; 96361; 99284; J2405

== ENCOUNTER 2019-07-17 00:01 | Emergency (ER) | payer OTHER ==
[2019-07-17] MEDS ORDERED: diphenhydrAMINE 50 MG/ML 1 ML VIAL IVP STA (00:20)
[2019-07-17] MEDS ORDERED: methylPREDNISolone SOD SUCCI 125 MG/2 ML VIAL IV STA (00:20)
[2019-07-17] MEDS ORDERED: FAMOTIDINE 20 MG/2 ML VIAL IV STA (00:20)
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
[2019-07-17 00:42] LABS: Basophils % (A) 1 %; Eosinophils # (A) 0.4 k/uL (0-0.7); Eosinophils % (A) 7 %; HCT 46.7 % (39.0-53.0); HGB 15.1 gm/dL (13.0-17.5); Lymphocytes # (A) 2.7 k/uL (1.0-4.8); Lymphocytes % (A) 44 %; MCH 30.8 pg (25.0-35.0); MCHC 32.3 g/dL (31.0-37.0); MCV 95.5 fL (80.0-100.0); Mean Platelet Volume 7.6; Monocytes # (A) 0.4 k/uL (0-1.0); Monocytes % (A) 6 %; Neutrophils # (A) 2.4 k/uL (1.3-7.7); Neutrophils % (A) 40 %; Platelet Count 233 k/uL (150-450); RBC 4.89 m/uL (4.30-5.90); RDW 14.1 % (11.5-15.5); WBC 6.1 k/uL (3.8-10.6)
[2019-07-17 00:51] LABS: Albumin 3.6 g/dL (3.5-5.0); Potassium 4.4 mmol/L (3.5-5.1); Total Bilirubin 0.1 mg/dL (0.2-1.3); Total Protein 6.2 g/dL (6.3-8.2)
[2019-07-17 01:50] VITALS: BP 118/87; PULSE 66; RESP 16; TEMP 98.3
== END 2019-07-17 01:50 | disposition home or self-care (01) ==
LOC: EC 00:01
DX: T78.3XXA Angioneurotic edema, initial encounter (principal); F17.200 Nicotine dependence, unspecified, uncomplicated
CPT/HCPCS: 36415; 80053; 85025; 99283; 96374; 96375 ×2; J1200; J2930

== ENCOUNTER 2020-06-15 21:06 | Emergency (ER) | payer OTHER ==
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
--- NOTE | 2020-06-16 01:40 | XR ---
EXAM: XR Chest, 2 Views CLINICAL HISTORY: Chest pain. TECHNIQUE: Frontal and lateral views of the chest. COMPARISON: April 22, 2019 FINDINGS: Lungs: Unremarkable. No infiltration, atelectasis or mass density. Pleural space: Unremarkable. No pneumothorax. No pleural fluid. Heart: Unremarkable. No cardiomegaly. Mediastinum: Unremarkable. Bones/joints: Unremarkable. No acute abnormalities. IMPRESSION: Negative chest x-rays.
[2020-06-16 02:06] VITALS: RESP 18
[2020-06-16] MEDS ORDERED: KETOROLAC 15 MG/ML 1 ML VIAL IVP STA (02:08)
[2020-06-16 03:05] LABS: ALT 17 U/L (4-49); AST 27 U/L (17-59); African American GFR (CKD) >90 (>60 ml/min/1.73 sqM); Albumin 4.5 g/dL (3.5-5.0); Alkaline Phosphatase 67 U/L (38-126); Anion Gap 5 mmol/L; Blood Urea Nitrogen 13 mg/dL (9-20); Calcium 9.7 mg/dL (8.4-10.2); Carbon Dioxide 29 mmol/L (22-30); Chloride 101 mmol/L (98-107); Glucose 91 mg/dL (74-99); Lipase 87 U/L (23-300); Magnesium 2.3 mg/dL (1.6-2.3); Non-African American GFR(CKD) >90 (>60 ml/min/1.73 sqM); Potassium 4.5 mmol/L (3.5-5.1); Sodium 135 mmol/L (137-145); Total Bilirubin 0.4 mg/dL (0.2-1.3); Total Protein 7.6 g/dL (6.3-8.2)
[2020-06-16 03:15] LABS: Basophils % (A) 1 %; Eosinophils # (A) 0.2 k/uL (0-0.7); Eosinophils % (A) 4 %; HCT 47.6 % (39.0-53.0); HGB 15.5 gm/dL (13.0-17.5); Lymphocytes % (A) 38 %; MCHC 32.6 g/dL (31.0-37.0); MCV 91.9 fL (80.0-100.0); Mean Platelet Volume 7.4; Monocytes # (A) 0.5 k/uL (0-1.0); Monocytes % (A) 10 %; Neutrophils # (A) 2.3 k/uL (1.3-7.7); Neutrophils % (A) 44 %; Platelet Count 242 k/uL (150-450); RBC 5.19 m/uL (4.30-5.90); RDW 14.2 % (11.5-15.5); WBC 5.3 k/uL (3.8-10.6)
[2020-06-16 03:28] LABS: D-Dimer <0.17 mg/L FEU (<0.60); INR 0.9 (<1.2); Prothrombin Time 9.7 sec (9.0-12.0)
[2020-06-16 05:41] VITALS: BP 108/80; PULSE 78; TEMP 97.8
== END 2020-06-16 05:41 | disposition home or self-care (01) ==
LOC: EC 21:06
DX: M94.0 Chondrocostal junction syndrome [Tietze] (principal); F17.200 Nicotine dependence, unspecified, uncomplicated; J45.909 Unspecified asthma, uncomplicated
CPT/HCPCS: 36415; 71046; 80053; 83690; 83735; 83880; 84484; 85025; 85379; 85610; 85730; 93005; 99285

== ENCOUNTER 2021-06-16 04:57 | Emergency (ER) | payer OTHER ==
[2021-06-16 05:02] VITALS: RESP 18; TEMP 97.1
[2021-06-16] MEDS ORDERED: HYDROmorphone 0.5 MG/0.5 ML SYRINGE IVP STA (05:32)
[2021-06-16] MEDS ORDERED: SODIUM CHLORIDE 0.9% 500 ML 500 ML IV STA (05:32)
[2021-06-16] MEDS ORDERED: ONDANSETRON 4 MG/2 ML VIAL IVP STA (05:32)
[2021-06-16 05:34] VITALS: PULSE 78
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
[2021-06-16 05:52] LABS: Basophils % (A) 1 %; Eosinophils # (A) 0.1 k/uL (0-0.7); Eosinophils % (A) 3 %; HCT 52.6 % (39.0-53.0); HGB 17.1 gm/dL (13.0-17.5); Lymphocytes # (A) 1.5 k/uL (1.0-4.8); Lymphocytes % (A) 34 %; MCH 30.5 pg (25.0-35.0); MCHC 32.6 g/dL (31.0-37.0); MCV 93.8 fL (80.0-100.0); Monocytes # (A) 0.4 k/uL (0-1.0); Monocytes % (A) 8 %; Neutrophils # (A) 2.3 k/uL (1.3-7.7); Neutrophils % (A) 52 %; Platelet Count 254 k/uL (150-450); RBC 5.61 m/uL (4.30-5.90); RDW 14.1 % (11.5-15.5); WBC 4.4 k/uL (3.8-10.6)
[2021-06-16 06:15] LABS: ALT 16 U/L (4-49); African American GFR (CKD) >90 (>60 ml/min/1.73 sqM); Amylase 123 U/L (30-110); Anion Gap 13 mmol/L; Blood Urea Nitrogen 13 mg/dL (9-20); Calcium 9.3 mg/dL (8.4-10.2); Carbon Dioxide 22 mmol/L (22-30); Chloride 103 mmol/L (98-107); Glucose 98 mg/dL (74-99); Lipase 109 U/L (23-300); Non-African American GFR(CKD) 89 (>60 ml/min/1.73 sqM); Sodium 138 mmol/L (137-145); Total Bilirubin 0.8 mg/dL (0.2-1.3)
[2021-06-16 06:16] LABS: Albumin 4.8 g/dL (3.5-5.0); Potassium 4.4 mmol/L (3.5-5.1); Total Protein 8.5 g/dL (6.3-8.2)
[2021-06-16 06:17] LABS: AST 32 U/L (17-59); Alkaline Phosphatase 61 U/L (38-126)
[2021-06-16 07:17] VITALS: BP 128/89
== END 2021-06-16 07:17 | disposition home or self-care (01) ==
LOC: EC 04:57
DX: K52.9 Noninfective gastroenteritis and colitis, unspecified (principal); J45.909 Unspecified asthma, uncomplicated; F17.200 Nicotine dependence, unspecified, uncomplicated; F12.90 Cannabis use, unspecified, uncomplicated
CPT/HCPCS: 99284; 96374; 96375; 96361; 36415; 80053; 82150; 83690; 85025; J2405; J1170

== ENCOUNTER 2022-02-01 10:48 | Emergency (ER) | payer OTHER ==
[2022-02-01 10:54] VITALS: RESP 18; TEMP 98.5
[2022-02-01] MEDS ORDERED: SODIUM CHLORIDE 0.9% 1,000 ML IV STA (11:02)
[2022-02-01] MEDS ORDERED: PANTOPRAZOLE 40 MG/10 ML VIAL IVP STA (11:02)
[2022-02-01] MEDS ORDERED: KETOROLAC 15 MG/ML 1 ML VIAL IVP STA (11:02)
[2022-02-01] MEDS ORDERED: ONDANSETRON 4 MG/2 ML VIAL IVP STA (11:02)
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
[2022-02-01 11:40] LABS: ALT 19 U/L (4-49); AST 26 U/L (17-59); African American GFR (CKD) >90 (>60 ml/min/1.73 sqM); Albumin 4.8 g/dL (3.5-5.0); Alkaline Phosphatase 71 U/L (38-126); Amylase 81 U/L (30-110); Anion Gap 8 mmol/L; Blood Urea Nitrogen 12 mg/dL (9-20); Calcium 9.5 mg/dL (8.4-10.2); Carbon Dioxide 27 mmol/L (22-30); Chloride 103 mmol/L (98-107); Glucose 110 mg/dL (74-99); Lipase 50 U/L (23-300); Non-African American GFR(CKD) 80 (>60 ml/min/1.73 sqM); Potassium 4.4 mmol/L (3.5-5.1); Sodium 138 mmol/L (137-145); Total Bilirubin 0.5 mg/dL (0.2-1.3); Total Protein 7.8 g/dL (6.3-8.2)
[2022-02-01 11:45] LABS: Basophils # (A) 0.1 k/uL (0-0.2); Basophils % (A) 3 %; Eosinophils # (A) 0.1 k/uL (0-0.7); Eosinophils % (A) 1 %; HCT 48.9 % (39.0-53.0); HGB 16.4 gm/dL (13.0-17.5); Lymphocytes % (A) 25 %; MCH 30.6 pg (25.0-35.0); MCHC 33.6 g/dL (31.0-37.0); Mean Platelet Volume 7.9; Monocytes # (A) 0.5 k/uL (0-1.0); Monocytes % (A) 13 %; Neutrophils # (A) 2.2 k/uL (1.3-7.7); Neutrophils % (A) 53 %; Platelet Count 232 k/uL (150-450); RBC 5.37 m/uL (4.30-5.90); RDW 13.7 % (11.5-15.5); WBC 4.1 k/uL (3.8-10.6)
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
[2022-02-01 12:26] LABS: Appearance,Urine Clear (Clear); Bilirubin,Urine Negative (Negative); Blood,Urine Negative (Negative); Color,Urine Yellow; Glucose,Urine (UA) Negative (Negative); Ketones,Urine 1+ (Negative); Leukocyte Esterase,Urine Negative (Negative); Nitrite,Urine Negative (Negative); PH, Urine 5.5 (5.0-8.0); Protein,Urine Trace (Negative); Specific Gravity,Urine 1.022 (1.001-1.035); Urobilinogen,Urine <2.0 mg/dL (<2.0)
--- NOTE | 2022-02-01 12:26 | CT ---
EXAMINATION TYPE: CT abdomen pelvis w con CT DLP: 719.7 mGycm, Automated exposure control for dose reduction was used. DATE OF EXAM: 02/01/2022 12:18 PM COMPARISON: CT abdomen pelvis 06/03/2018 CLINICAL INDICATION:Male, 46 years old with history of abdominal pain; abdominal pain, nausea TECHNIQUE: Axial CT of the abdomen and pelvis. Sagittal and coronal reformats were created on a [employer] workstation. Contrast used:100 mL of Isovue 300 with IV Contrast, Oral contrast used: without Oral Contrast FINDINGS: LOWER CHEST: Unremarkable ABDOMEN LIVER: Unremarkable GALLBLADDER AND BILE DUCTS: Unremarkable. PANCREAS: Main pancreatic duct is nondilated. Focus of fat interdigitation near the pancreatic tail i s noted. SPLEEN: Unremarkable. ADRENAL GLANDS: Unremarkable. KIDNEYS AND URETERS: No evidence of hydronephrosis or renal calculus. Probable left subcentimeter daly al cysts. PELVIS BLADDER: Unremarkable REPRODUCTIVE: Unremarkable. ABDOMEN & PELVIS STOMACH AND BOWEL: No evidence of bowel obstruction. Small bowel feces seen throughout the abdomen. A ppendix is not definitively visualized. PERITONEUM: No evidence of pneumoperitoneum or free fluid. VASCULATURE: No evidence of aortic aneurysm. MUSCULOSKELETAL: No acute osseous abnormalities LYMPH NODES: No gross evidence for lymphadenopathy. SOFT TISSUE/ABDOMINAL WALL: Unremarkable IMPRESSION: 1. Small bowel feces correlate for ileus/fecal stasis. No obvious acute intra-abdominal process ident ified.
[2022-02-01] MEDS ORDERED: ONDANSETRON 4 MG ODT STARTER PACK 2 TAB BTL PO STA (13:09)
[2022-02-01 13:23] VITALS: BP 150/92; PULSE 73
== END 2022-02-01 13:23 | disposition home or self-care (01) ==
LOC: EC 10:48
DX: K56.7 Ileus, unspecified (principal); J45.909 Unspecified asthma, uncomplicated; F17.200 Nicotine dependence, unspecified, uncomplicated; F12.90 Cannabis use, unspecified, uncomplicated; Z20.822 Contact with and (suspected) exposure to COVID-19
CPT/HCPCS: 36415; 80053; 82150; 83690; 84484; 85025; 81003; 87502; 87635; 71101; 73010; 74177; 99284; 96374; 96375 ×2; 96361; J2405; J1885; S0119; C9113; Q9967

== ENCOUNTER 2022-03-25 07:24 | Emergency (ER) | payer OTHER ==
[2022-03-25 08:00] VITALS: BP 144/83; PULSE 80; RESP 20; TEMP 98
[2022-03-25] MEDS ORDERED: HYDROmorphone 1 MG/ML 1 ML SYRINGE IM STA (08:08)
[2022-03-25] MEDS ORDERED: ONDANSETRON ODT 4 MG TAB PO STA (08:08)
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
[2022-03-25 08:48] LABS: Appearance,Urine Clear (Clear); Bilirubin,Urine Negative (Negative); Blood,Urine Negative (Negative); Color,Urine Yellow; Glucose,Urine (UA) Negative (Negative); Ketones,Urine Negative (Negative); Leukocyte Esterase,Urine Negative (Negative); Nitrite,Urine Negative (Negative); PH, Urine 6.5 (5.0-8.0); Protein,Urine Trace (Negative); Specific Gravity,Urine 1.017 (1.001-1.035); Urobilinogen,Urine <2.0 mg/dL (<2.0)
== END 2022-03-25 09:35 | disposition left against medical advice (07) ==
LOC: EC 07:24
DX: M54.50 Low back pain, unspecified (principal); J45.909 Unspecified asthma, uncomplicated; F17.200 Nicotine dependence, unspecified, uncomplicated; F12.90 Cannabis use, unspecified, uncomplicated; Z53.29 Procedure and treatment not carried out because of patient's decision for other reasons
CPT/HCPCS: 81003; 99284; 96372; J1170

== ENCOUNTER 2022-03-25 11:10 | Emergency (ER) | payer OTHER ==
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
[2022-03-25 11:47] VITALS: TEMP 96.7
[2022-03-25 13:31] LABS: Basophils % (A) 1 %; Eosinophils # (A) 0.1 k/uL (0-0.7); Eosinophils % (A) 1 %; HCT 49.6 % (39.0-53.0); HGB 16.2 gm/dL (13.0-17.5); Lymphocytes % (A) 11 %; MCH 30.2 pg (25.0-35.0); MCHC 32.7 g/dL (31.0-37.0); MCV 92.5 fL (80.0-100.0); Mean Platelet Volume 7.7; Monocytes # (A) 0.2 k/uL (0-1.0); Monocytes % (A) 2 %; Neutrophils # (A) 7.7 k/uL (1.3-7.7); Neutrophils % (A) 83 %; Platelet Count 253 k/uL (150-450); RBC 5.37 m/uL (4.30-5.90); RDW 13.6 % (11.5-15.5); WBC 9.2 k/uL (3.8-10.6)
[2022-03-25 13:41] LABS: ALT 21 U/L (4-49); AST 24 U/L (17-59); African American GFR (CKD) >90 (>60 ml/min/1.73 sqM); Alkaline Phosphatase 70 U/L (38-126); Amylase 120 U/L (30-110); Anion Gap 9 mmol/L; Blood Urea Nitrogen 10 mg/dL (9-20); Calcium 9.7 mg/dL (8.4-10.2); Carbon Dioxide 28 mmol/L (22-30); Chloride 104 mmol/L (98-107); Glucose 146 mg/dL (74-99); Lipase 52 U/L (23-300); Non-African American GFR(CKD) >90 (>60 ml/min/1.73 sqM); Potassium 4.5 mmol/L (3.5-5.1); Sodium 141 mmol/L (137-145); Total Bilirubin 0.5 mg/dL (0.2-1.3); Total Protein 8.5 g/dL (6.3-8.2)
[2022-03-25 15:01] LABS: Appearance,Urine Clear (Clear); Bilirubin,Urine Negative (Negative); Blood,Urine Trace (Negative); Color,Urine Yellow; Glucose,Urine (UA) Negative (Negative); Ketones,Urine Negative (Negative); Leukocyte Esterase,Urine Negative (Negative); Mucus,Urine Rare /hpf; Nitrite,Urine Negative (Negative); Protein,Urine Trace (Negative); RBC,Urine 31 /hpf (0-5); Specific Gravity,Urine 1.022 (1.001-1.035); Squamous Epithelial Cell,Urine <1 /hpf (0-4); Urobilinogen,Urine <2.0 mg/dL (<2.0); WBC,Urine 1 /hpf (0-5)
[2022-03-25] MEDS ORDERED: SODIUM CHLORIDE 0.9% 1,000 ML IV ONE (15:11)
[2022-03-25] MEDS ORDERED: KETOROLAC 15 MG/ML 1 ML VIAL IVP STA (15:11)
[2022-03-25] MEDS ORDERED: FAMOTIDINE 20 MG/2 ML VIAL IV STA (15:11)
[2022-03-25] MEDS ORDERED: ONDANSETRON 4 MG/2 ML VIAL IVP STA (15:11)
--- NOTE | 2022-03-25 16:42 | CT ---
EXAMINATION TYPE: CT abdomen pelvis wo con DATE OF EXAM: 03/25/2022 COMPARISON: 02/01/2022 HISTORY: back and abdominal pain and vomiting CT DLP: 495.5 mGycm Automated exposure control for dose reduction was used. Images obtained from the diaphragm to the floor the pelvis with no contrast. The lung bases are clear. No pleural effusion. Heart size is normal. No pericardial effusion. Liver s pleen and stomach pancreas gallbladder appear intact. The boundaries are not dilated. There is no adrenal mass. Kidneys show normal size and contour. No hydronephrosis. Ureters are not di lated. No retroperitoneal adenopathy. Appendix is posterior and appears normal. The bladder distends smoothly. No inguinal hernia. No free fluid in the pelvis. No pelvic mass. There is no mesenteric edema. No ascites or free air. No evidence of bowel obstruction. No evidence o f a renal calculus. The lumbar vertebrae have normal alignment. Posterior elements are intact. No compression fracture. T he bony pelvis is intact. The hip joints are intact. IMPRESSION: Negative CT scan of the abdomen and pelvis. No renal stone or obstruction. Normal appendix. No advers e change.
[2022-03-25] MEDS ORDERED: ONDANSETRON 4 MG ODT STARTER PACK 2 TAB BTL PO STA (17:04)
[2022-03-25 17:22] VITALS: BP 156/101; PULSE 66; RESP 18
== END 2022-03-25 17:30 | disposition home or self-care (01) ==
LOC: EC 11:10
DX: R10.84 Generalized abdominal pain (principal); J45.909 Unspecified asthma, uncomplicated; F17.200 Nicotine dependence, unspecified, uncomplicated; F12.90 Cannabis use, unspecified, uncomplicated
CPT/HCPCS: 36415; 80053; 82150; 83690; 85025; 81001; 74176; 99284; 96374; 96375; 96361; J2405; J1885; S0119

== ENCOUNTER 2022-03-27 01:15 | Observation (INO) | payer OTHER ==
[2022-03-27] MEDS ORDERED: ONDANSETRON 4 MG/2 ML VIAL IVP STA ×2 (01:58→03:33)
[2022-03-27] MEDS ORDERED: ASPIRIN 81 MG PO STA (01:58)
[2022-03-27] MEDS ORDERED: SODIUM CHLORIDE 0.9% 1,000 ML IV STA ×2 (01:58→03:31)
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
--- NOTE | 2022-03-27 02:14 | XR ---
EXAMINATION TYPE: XR chest 2V DATE OF EXAM: 03/27/2022 COMPARISON: 02/01/2022 HISTORY: Chest pain TECHNIQUE: 2 views FINDINGS: There are calcified granulomata scattered in the lungs. Heart and mediastinum are normal. L ungs are clear of infiltrate. There are chest leads. Bony thorax is intact. IMPRESSION: No active cardiopulmonary disease. Normal heart. No change.
[2022-03-27 02:39] LABS: Basophils % (A) 1 %; Eosinophils # (A) 0.1 k/uL (0-0.7); Eosinophils % (A) 1 %; HCT 50.3 % (39.0-53.0); HGB 16.7 gm/dL (13.0-17.5); Lymphocytes # (A) 1.6 k/uL (1.0-4.8); Lymphocytes % (A) 21 %; MCH 30.1 pg (25.0-35.0); MCHC 33.3 g/dL (31.0-37.0); MCV 90.4 fL (80.0-100.0); Mean Platelet Volume 7.9; Monocytes # (A) 0.6 k/uL (0-1.0); Monocytes % (A) 8 %; Neutrophils # (A) 5.1 k/uL (1.3-7.7); Neutrophils % (A) 67 %; Platelet Count 249 k/uL (150-450); RBC 5.56 m/uL (4.30-5.90); RDW 13.2 % (11.5-15.5); WBC 7.6 k/uL (3.8-10.6)
[2022-03-27 02:48] LABS: Partial Thromboplastin Time 30.8 sec (22.0-30.0); Prothrombin Time 10.2 sec (9.0-12.0)
[2022-03-27 02:51] LABS: ALT 18 U/L (4-49); AST 24 U/L (17-59); African American GFR (CKD) >90 (>60 ml/min/1.73 sqM); Albumin 4.6 g/dL (3.5-5.0); Alkaline Phosphatase 69 U/L (38-126); Anion Gap 11 mmol/L; Blood Urea Nitrogen 16 mg/dL (9-20); Calcium 9.7 mg/dL (8.4-10.2); Carbon Dioxide 22 mmol/L (22-30); Chloride 104 mmol/L (98-107); Glucose 106 mg/dL (74-99); Lipase 513 U/L (23-300); Magnesium 2.1 mg/dL (1.6-2.3); Non-African American GFR(CKD) >90 (>60 ml/min/1.73 sqM); Sodium 137 mmol/L (137-145); Total Bilirubin 0.7 mg/dL (0.2-1.3); Total Protein 7.8 g/dL (6.3-8.2)
[2022-03-27] MEDS ORDERED: HYDROmorphone 1 MG/ML 1 ML SYRINGE IVP STA (03:31)
[2022-03-27] MEDS ORDERED: ONDANSETRON 4 MG/2 ML VIAL IVP PRN (04:29)
[2022-03-27] MEDS ORDERED: ACETAMINOPHEN TAB 325 MG TAB PO PRN (04:29)
[2022-03-27] MEDS ORDERED: HYDROmorphone 2 MG TAB PO PRN (04:29)
[2022-03-27] MEDS ORDERED: NALOXONE 0.4 MG/ML 1 ML VIAL IV PRN (04:29)
[2022-03-27] MEDS ORDERED: LACTATED RINGERS 1,000 ML IV ONE (04:30)
[2022-03-27] MEDS ORDERED: HYDROmorphone 1 MG/ML 1 ML SYRINGE IVP PRN (04:36)
[2022-03-27] MEDS ORDERED: HYDROmorphone 0.5 MG/0.5 ML SYRINGE IVP PRN (04:49)
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
[2022-03-27] MEDS: LACTATED RINGERS 1,000 ML IV SCH ×6 (05:53→12:27)
[2022-03-27] MEDS: PANTOPRAZOLE 40 MG TABLET PO SCH (05:54)
[2022-03-27] MEDS ORDERED: PANTOPRAZOLE 40 MG/10 ML VIAL IV SCH (09:00)
[2022-03-27] MEDS: SODIUM CHLORIDE 0.9% 1,000 ML IV SCH ×3 (09:09→20:28)
[2022-03-27] MEDS: HEPARIN SODIUM,PORCINE/PF 5,000 UNIT/0.5 ML SYRINGE SQ SCH ×2 (09:10→15:57)
[2022-03-27 09:12] LABS: Chol/HDL Ratio 3.22 Ratio; LDL Cholesterol,Calculated 122.8 mg/dL (0.0-131.0); Lipase 65 U/L (14-60); VLDL Calculation 12.96 mg/dL (5.00-40.00)
--- NOTE | 2022-03-27 11:11 | US ---
EXAMINATION TYPE: US gallbladder DATE OF EXAM: 03/27/2022 COMPARISON: US & CT CLINICAL HISTORY: vomiting. Pt states generalized ABD pain, N&V TECHNIQUE: Multiple sonographic images of the right upper quadrant are obtained. FINDINGS: EXAM MEASUREMENTS: Liver Length: 14.0 cm Gallbladder Wall: 0.2 cm CBD: 0.5 cm Right Kidney: 10.1 x 4.2 x 4.9 cm RADIOLOGY ASSISTANT NOTES: Pancreas: 2mm pancreatic duct visualized, tail obscured by overlying bowel gas Liver: wnl Gallbladder: wnl Evidence for sonographic John's sign: No CBD: wnl Right Kidney: No evidence of mass or hydro, lower pole gassed out IMPRESSION: Mildly prominent pancreatic duct but no definite pancreatic lesion. This is a nonspecific finding. No gallstones
[2022-03-27 15:29] LABS: Appearance,Urine Clear (Clear); Bilirubin,Urine Negative (Negative); Blood,Urine Negative (Negative); Color,Urine Yellow; Glucose,Urine (UA) Negative (Negative); Ketones,Urine Negative (Negative); Leukocyte Esterase,Urine Negative (Negative); Nitrite,Urine Negative (Negative); Protein,Urine Trace (Negative); Specific Gravity,Urine 1.026 (1.001-1.035); Urobilinogen,Urine <2.0 mg/dL (<2.0)
--- NOTE | 2022-03-27 16:36 | P.PN ---
Subjective Progress Note Date: 03/27/22 Patient is a 46-year-old male with chronic back pain, carpal tunnel syndrome, asthma, and prior diagnosis of ileus who presented to the emergency department secondary to left-sided chest pain, right back pain, and nausea and vomiting. He recently been seen in the ER on 03/25 and diagnosed with constipation and sent home with laxatives. DT abdomen and pelvis was reviewed by myself through that stay. Initial radiology read was no acute process however review the images does confirm constipation. Arrival to the ER he was tachycardic with a heart rate of 111. Initial laboratory analysis was remarkable for lipase of 513, covert, influenza A, influenza B, and COVID-19 were negative. There was concerns for possible pancreatitis. Initial troponin was negative and EKG revealed no signs of ischemia. He was started on IV fluids and admitted for possible mild pancreatitis. By the next morning his nausea and vomiting had resolved and he started having diarrhea which he felt was from laxatives. Gallbladder ultrasound showed no gallstones. Patient seen and examined at bedside. His significant other retell the events as noted above from the last several days. He reports he started having some diarrhea but no nausea and vomiting at this time. He is no longer having abdominal pain. General: nontoxic, no distress, appears at stated age Derm: warm, dry Head: atraumatic, normocephalic, symmetric Eyes: EOMI, no lid lag, anicteric sclera Mouth: no lip lesion, mucus membranes moist Cardiovascular: S1S2 reg, no murmur, positive posterior tibial pulse bilateral, Lungs: CTA bilateral, no rhonchi, no rales , no accessory muscle use Abdominal: soft, tender to palpation periumbilical, no guarding, no appreciable organomegaly Ext: no gross muscle atrophy, no edema, no contractures Neuro: CN II-XI grossly intact, no focal neuro deficits Psych: Alert, oriented, appropriate affect Assessment/plan: Gastroenteritis Elevated lipase secondary to nausea and vomiting Diarrhea secondary to laxative use with recent constipation Chest pain/palpitations -Continue with IV fluids, antiemetics, and pain control as needed -Changed to clear liquid diet and advance as tolerated to full liquids. Discussed with nursing. - Gallbladder ultrasound was ordered and reviewed which showed no gallstones. -Troponins were trended and remained negative. A-lipid profile reviewed and within normal. -Lipase reviewed from this morning and is down to 65. Anticipate home in a.m. Objective - Vital Signs Vital signs: Vital Signs Temp 98.3 F 03/27/22 14:00 Pulse 65 03/27/22 14:00 Resp 18 03/27/22 14:00 BP 146/85 03/27/22 14:00 Pulse Ox 100 03/27/22 14:00 FiO2 Intake & Output 03/26/22 03/27/22 03/27/22 18:59 06:59 18:59 Intake Total 999 Balance 999 Weight 86.636 kg Intake: Intake, IV Titration 999 Amount Lactated Ringers 1,000 ml 999 @ 999 mls/hr IV .Q1H1M [facility] Rx#:[id number] - Labs CBC & Chem 7: 03/27/22 02:19 03/27/22 02:19 Labs: Abnormal Lab Results - Last 24 Hours (Table) 03/27/22 03/27/22 03/27/22 Range/Units 02:19 02:19 05:27 APTT 30.8 H (22.0-30.0) sec Glucose 106 H (74-99) mg/dL HDL Cholesterol 61.20 H (40.00-60.00) mg/dL Lipase 513 H 65 H (23-300) U/L Urine Protein (Negative) 03/27/22 Range/Units 14:52 APTT (22.0-30.0) sec Glucose (74-99) mg/dL HDL Cholesterol (40.00-60.00) mg/dL Lipase (23-300) U/L Urine Protein Trace H (Negative)
[2022-03-28] MEDS: HEPARIN SODIUM,PORCINE/PF 5,000 UNIT/0.5 ML SYRINGE SQ SCH ×2 (00:33→09:47)
[2022-03-28] MEDS: SODIUM CHLORIDE 0.9% 1,000 ML IV SCH (04:34)
[2022-03-28] MEDS: PANTOPRAZOLE 40 MG TABLET PO SCH (06:38)
[2022-03-28 08:20] VITALS: BP 144/92; PULSE 72; RESP 20; TEMP 98
[2022-03-28 08:57] LABS: Basophils # (A) 0.04 X 10*3/uL (0.00-0.10); Basophils % (A) 0.9 %; Eosinophils # (A) 0.09 X 10*3/uL (0.04-0.35); Eosinophils % (A) 1.9 %; HCT 44.4 % (39.6-50.0); HGB 14.4 g/dL (13.0-17.0); Immature Grans, Automated 0.2 %; Lymphocytes # (A) 1.93 X 10*3/uL (0.90-5.00); Lymphocytes % (A) 41.2 %; MCH 30.1 pg (27.0-32.0); MCHC 32.4 g/dL (32.0-37.0); MCV 92.9 fL (80.0-97.0); Mean Platelet Volume 10.4 fL (9.5-12.2); Monocytes # (A) 0.74 X 10*3/uL (0.20-1.00); Monocytes % (A) 15.8 %; NRBC Per 100 WBC 0 /100 WBCS (0.0-0.0); Neutrophils # (A) 1.88 X 10*3/uL (1.80-7.70); Platelet Count 226 X 10*3/uL (140-440); RBC 4.78 X 10*6/uL (4.40-5.60); RDW 13.5 % (11.5-14.5); WBC 4.69 X 10*3/uL (4.50-10.00)
[2022-03-28 09:22] LABS: African American GFR (CKD) 105.6 (60.0-200.0); Anion Gap 6.2 mmol/L (10.00-18.00); BUN/Creat Ratio 10.2 Ratio (12.00-20.00); Blood Urea Nitrogen 10.2 mg/dL (9.0-27.0); Calcium 8.9 mg/dL (8.7-10.3); Carbon Dioxide 25.8 mmol/L (20.0-27.5); Non-African American GFR(CKD) 91.1 (60.0-200.0); Potassium 3.9 mmol/L (3.5-5.5)
--- NOTE | 2022-03-28 14:40 | P.DS ---
Providers Date of admission: 03/27/22 04:26 Expected date of discharge: 03/28/22 Attending physician: Katie Camacho MD Primary care physician: Stated None Hospital Course: Discharge Diagnosis: Gastroenteritis Elevated lipase secondary to nausea and vomiting Diarrhea secondary to laxative use with recent constipation Non cardiac chest pain Hospital Course: Patient is a 46-year-old male with chronic back pain, carpal tunnel syndrome, asthma, and prior diagnosis of ileus who presented to the emergency department secondary to left-sided chest pain, right back pain, and nausea and vomiting. He recently been seen in the ER on 03/25 and diagnosed with constipation and sent home with laxatives. DT abdomen and pelvis was reviewed by myself through that stay. Initial radiology read was no acute process however review the images does confirm constipation. Arrival to the ER he was tachycardic with a heart rate of 111. Initial laboratory analysis was remarkable for lipase of 513, covert, influenza A, influenza B, and COVID-19 were negative. There was concerns for possible pancreatitis. Initial troponin was negative and EKG revealed no signs of ischemia. He was started on IV fluids and admitted for possible mild pancreatitis. By the next morning his nausea and vomiting had resolved and he started having diarrhea which he felt was from laxatives. Gallbladder ultrasound showed no gallstones. He was started on a diet and continued to do well. By the next morning he was symptom free other than a little soreness in his abdomen likely secondary to the recurrent nausea and vomiting. Follow-up: He needs to follow with her family physician and [facility] I encouraged him to quit smoking. I did do a bland diet for the next 2 days and then increase to a high-fiber diet. Patient seen and examined at bedside. All are in his diet, no more nausea, vomiting, or diarrhea. Abdomen doesn't hurt and told palpated. No other complaints currently. Vital signs reviewed and stable. General: nontoxic, no distress, appears at stated age Derm: warm, dry Head: atraumatic, normocephalic, symmetric Eyes: EOMI, no lid lag, anicteric sclera Mouth: no lip lesion, mucus membranes moist Cardiovascular: S1S2 reg, no murmur, positive posterior tibial pulse bilateral, Lungs: CTA bilateral, no rhonchi, no rales , no accessory muscle use Abdominal: soft, tender to palpation epigastric, no guarding, no appreciable organomegaly Ext: no gross muscle atrophy, no edema, no contractures Neuro: CN II-XI grossly intact, no focal neuro deficits Psych: Alert, oriented, appropriate affect A total of 25 minutes of time were spent preparing this complex discharge summary. Patient was discharged on 03/28/22. Patient Condition at Discharge: Stable Plan - Discharge Summary New Discharge Prescriptions: No Action No Known Home Medications Discharge Medication List No Known Home Medications 03/25/22 [History] Follow up Appointment(s)/Referral(s): Joseph Guillen MD [STAFF PHYSICIAN] - 1 Week None,Stated [Primary Care Provider] - 1-2 days Patient Instructions/Handouts: Pancreatitis (DC), Abdominal Pain (GEN) Activity/Diet/Wound Care/Special Instructions: Activity: as tolerated Diet: [place] for the next 2 days and then increase to high fiber Special Instructions: Thank you for allowing us to participate in her care. We wish you well and your journey to better health. Please keep your goal of stopping smoking.
== END 2022-03-28 12:41 ==
LOC: EC 01:15 → 6NMEDSUR 04:26 → UNDOADMOB 04:26 → INTOOBSV 04:26
PROVIDERS: ADMIT Internal Medicine; ATTEND Internal Medicine
DX: K52.9 Noninfective gastroenteritis and colitis, unspecified (principal); R07.89 Other chest pain; R00.2 Palpitations; J45.909 Unspecified asthma, uncomplicated; G89.29 Other chronic pain; M54.9 Dorsalgia, unspecified; F17.200 Nicotine dependence, unspecified, uncomplicated; Z20.822 Contact with and (suspected) exposure to COVID-19
CPT/HCPCS: 96361 ×2; 96372 ×2; 96376; 96374; 96375; 99285; 36415; 85379; 80061; 80053; 80048; 83690; 83735; 84484; 85025 ×2; 85610; 85730; 81003; 87502; 87635; 71046; 76705; G0378 ×2; J2405; J1170 ×2; J1644 ×2

== ENCOUNTER → 2022-09-27 | Outpatient (CLI) | payer OTHER ==
--- NOTE | 2022-09-27 16:41 | US ---
EXAMINATION TYPE: US thyroid st tissue head/neck DATE OF EXAM: 09/27/2022 COMPARISON: NONE CLINICAL INDICATION: Male, 47 years old with history of R59.0 LOCALIZED ENLARGED LYMPH NODES; Pt st ates palpable lump right lateral neck just inferior to right ear/ pt states pain at times Technique: Grayscale imaging of the right neck area of palpable abnormality. FINDINGS: Probable lymph node in area of pt's palpable= 0.6 x 0.3 x 0.2 cm IMPRESSION: Hypoechoic lesion with suggestive fatty hilum likely representing lymph node. If there remains concer n consider CT neck with IV contrast and palpable marker placement.
== END | disposition home or self-care (01) ==
LOC: RADUSWWP 15:28
PROVIDERS: ATTEND Internal Medicine
DX: R59.0 Localized enlarged lymph nodes (principal)
CPT/HCPCS: 76536

== ENCOUNTER → 2023-01-26 | Outpatient (CLI) | payer OTHER ==
--- NOTE | 2023-01-26 09:25 | CT ---
EXAMINATION TYPE: CT soft tissue neck wo/w con DATE OF EXAM: 01/26/2023 COMPARISON: None HISTORY: 47-year-old male R59.0, bilateral swollen lymph nodes TECHNIQUE: Contiguous axial scanning of the soft tissues of the neck performed without and with IV Co ntrast, patient injected with 100 mL of Isovue 300. Coronal/sagittal reconstructions performed. CT DLP: 869 mGycm Automated exposure control for dose reduction was used. FINDINGS: Visualized intracranial structures, orbits and globes, paranasal sinuses, mastoid air cells appear cl ear. Nasopharynx appears clear. Mild to moderate hypertrophy of the bilateral palatine tonsils with a couple calcifications in the ri ght measuring up to 5 mm suggesting sequela of prior infection. Epiglottis and prevertebral soft tissues are satisfactory. Glottic and subglottic structures as well as the tracheal column appears clear. Mild emphysematous change in the visualized upper lungs. There may be some subtle centrilobular groun dglass nodularity in the visualized upper lungs that may be seen with respiratory bronchiolitis. Thyroid gland and submandibular glands appear satisfactory. Mild atrophy of the bilateral parotid gla nds. No obvious neck mass or cervical lymphadenopathy is clearly seen. Mild degenerative disc disease C5-C6. IMPRESSION: 1. NO SUSPICIOUS CERVICAL LYMPHADENOPATHY OR NECK MASS IS IDENTIFIED. 2. 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 A COUPLE CALCIFICATIONS/TONSILLOLITHS O N THE RIGHT MEASURE UP TO 5 MM. 3. COPD WITH MILD EMPHYSEMA. THERE MAY BE SOME UNDERLYING SMOKING-RELATED RESPIRATORY BRONCHIOLITIS.
== END | disposition home or self-care (01) ==
LOC: RADCTMAIN 08:08
PROVIDERS: ATTEND Internal Medicine
DX: J35.1 Hypertrophy of tonsils (principal); J43.9 Emphysema, unspecified; R59.0 Localized enlarged lymph nodes
CPT/HCPCS: 70492; Q9967